=== PATIENT | female | born 1990 | race Hispanic/Latino ===

== ENCOUNTER 2016-12-13 17:02 | Outpatient (CLI) | payer MEDICAID ==
[2016-12-13] MEDS ORDERED: LACTATED RINGERS 500 ML IV ONE ×2 (17:37→18:38)
[2016-12-13 17:58] VITALS: BP 93/52
[2016-12-13 18:07] LABS: Bacteria,Urine 1+ /HPF (Negative); Bilirubin,Urine NEG (Negative); Blood,Urine NEG (Negative); Ketones,Urine NEG (Negative); Leukocyte Esterase,Urine LG (Negative); Mucus,Urine 2+ /HPF; Nitrite,Urine NEG (Negative); Protein,Urine <15 mg/dL mg/dL (Negative); Urobilinogen,Urine < 2.0 mg/dL (<2.0)
[2016-12-13] MEDS: BRETHINE SUB-Q SCH ×2 (19:01→19:56)
== END 2016-12-13 20:21 | disposition home or self-care (01) ==
LOC: TRG 17:02
PROVIDERS: ATTEND Obstetrics & Gynecology
DX: O99.333 Smoking (tobacco) complicating pregnancy, third trimester (principal); O47.03 False labor before 37 completed weeks of gestation, third trimester; Z3A.36 36 weeks gestation of pregnancy
CPT/HCPCS: 81001; J3105; J7120